=== PATIENT | male | born 1990 | race Asian ===

== ENCOUNTER 2017-10-04 12:46 | Emergency (ER) | payer BC ==
[2017-10-04] MEDS ORDERED: Triple Antibiotic 0.94 gm Pkt TP STA (13:37)
[2017-10-04] MEDS ORDERED: Triple Antibiotic 0.94 gm Pkt TP ONE (13:43)
--- NOTE | 2017-10-04 14:10 | ED Physician Chart ---
ED Chief Complaint/HPI - Patient Information Date Seen:: 10/04/17 Time Seen:: 13:00 Chief Complaint:: Left Wrist Cut History of Present Illness:: onset x one hour [employer] of a left wrist cut accidentally while using a knife while cooking one hour [employer]; pt denies pain, paresthesias, weakness, dizziness, vertigo , visual or gait changes, H/As, LOC, neck pain, C/P, SOB, Abd. Pain, A/N/V/D/C, fever, chills, or urinary s/s; pt's last tetanus shot: < 5 years; UTD; Allergies:: Allergies Allergy/AdvReac Type Severity Reaction Status Date / Time No Known Allergies Allergy Verified 10/04/17 13:07 Vitals:: Vital Signs - 8 hr 10/04/17 10/04/17 13:07 13:51 Temp 97.8 F 97.8 F HR 117 85 RR 16 18 BP 138/79 117/52 O2 Sat % 99 97 Historian:: Patient Review:: Nurse's Note Reviewed ED Review of Systems - Review of Systems General/Constitutional: No fever, No chills, No weight loss, No weakness, No diaphoresis, No edema, No loss of appetite Skin: No skin lesions, No rash, No bruising, Other (Left Wrist Laceration) Head: No headache, No light-headedness Eyes: No loss of vision, No pain, No diplopia ENT: No earache, No nasal drainage, No sore throat, No tinnitus Neck: No neck pain, No swelling, No thyromegaly, No stiffness, No mass noted Cardio Vascular: No chest pain, No palpitations, No PND, No orthopnea, No edema Pulmonary: No SOB, No cough, No sputum, No wheezing GI: No nausea, No vomiting, No diarrhea, No pain, No melena, No hematochezia, No constipation, No hematemesis G/U: No dysuria, No frequency, No hematuria, No nacturia Musculoskeletal: No bone or joint pain, No back pain, No muscle pain Endocrine: No polyuria, No polydipsia Psychiatric: No prior psych history, No depression, No anxiety, No suicidal ideation, No homicidal ideation, No auditory hallucination, No visual hallucination Hematopoietic: No bruising, No lymphadenopathy Allergic/Immuno: No urticaria, No angioedema Neurological: No syncope, No focal symptoms, No weakness, No paresthesia, No headache, No seizure, No dizziness, No confusion, No vertigo ED Past Medical History - Past Medical History Obtainable: Yes Past Medical History: No significant medical hx Family History: None Social History: Non Smoker, No Alcohol, No Drug Use, Single Surgical History: None Psychiatricy History: None Medication: Reviewed Family Medical History - Family Member Mother History Unknown: Yes ED Physical Exam - Physical Examination General/Constitutional: Awake, Well-developed, well-nourished, Alert, No distress, GCS 15, Non-toxic appearing, Ambulatory Head: Atraumatic Eyes: Lids, conjuctiva normal, PERRL, EOMI Skin: Nl inspection, No rash, No skin lesions, No ecchymosis, Well hydrated, No lymphadenopathy Other Skin comments:: 1.5cm Left Wrist Laceration; no FBs; full ROMs of all joints; no ligament instability; good motor, tendon, and sensory functions; good NV functions ENMT: External ears, nose nl, TM canals nl, Nasal exam nl, Lips, teeth, gums nl , Oropharynx nl, Tonsils nl Neck: Nontender, Full ROM w/o pain, No JVD, No nuchal rigidity, No bruit, No mass, No stridor Other Neck comments:: supple; no meningeal signs; no cervical tenderness; no bruits Respiratory: Nl effort/Exclusion, Clear to Auscultation, No Wheeze/Rhonchi/Rales Cardio Vascular: RRR, No murmur, gallop, rubs, NL S1 S2, Carotid/Femoral/Distal pulses equal bilaterally GI: No tenderness/rebounding/guarding, No organomegaly, No hernia, Normal BS's, Nondistended, No mass/bruits, No McBurney tenderness Other GI comments:: no pulsatile masses : No CVA tenderness Extremities: No tenderness or effusion, Full ROM, normal strength in all extremities, No edema, Normal digits & nails Other Extremities comments:: as above Neuro/Psych: Alert/oriented, DTR's symmetric, Normal sensory exam, Normal motor strength, Judgement/insight normal, Mood normal, Normal gait, No focal deficits Misc: Normal back, No paraspinal tenderness ED Assessment - Procedures Informed Consent: Procedure/risk/benefits explained by MD: Yes Location:: Left Wrist Laceration Type:: Simple Wound Length: 1.5 cm Prep/Irrigation:: Thorough Cleansing and Irrigation with betadine and saline Local Anesthetic:: Xylocaine 1.0cc sub-Q Suture Type and #: 5-0 nylon sutures x 3 Comments:: neosporin ointment and dressing applied ED Septic Shock - . Is Septic Shock (SBP<90, OR Lactate>4 mmol\L) present?: No - <6hrs of presentation: Vital Signs: Vital Signs - 8 hr 10/04/17 10/04/17 13:07 13:51 Temp 97.8 F 97.8 F HR 117 85 RR 16 18 BP 138/79 117/52 O2 Sat % 99 97 ED Reassessment (Disposition) - Reassessment Reassessment:: pt is aymptomatic upon discharge Reassessment Condition:: Improved - Diagnosis Diagnosis:: 1.5cm Left Wrist Laceration; Left Wrist Wound - Aftercare/Follow up Instructions Aftercare/Follow-Up Instructions:: Counseled pt regarding lab results/diagnosis & need follow up, Refer to Discharge Instructions, Counseled pt & family regarding lab results/diagnosis & need follow up Medication Prescribed:: Rx: Keflex 500mg po qid x 10 days; Neosporin Ointment bid and dressing x 14 days ; Wound/Laceration Care Instructions; Sutures out in 14 days; keep wound clean and dry - Patient Disposition Discharge/Transfer:: Home Condition at Disposition:: Stable, Improved (RTER prn if existing s/s reoccur and/or get worse and/or any other new s/s occur; ACIs given for all above Dx; Sutures to be removed in 10 days to 14 days; Have wound checked in one day by PMD; Refer to Orthopedist/Vascular Surgeon DK; F/U with PMD in one day or prn ; RTER prn if concerned) ED Discharge Plan - Patient Disposition Admit/Discharge/Transfer: PT DISCHARGED HOME Condition at Disposition: Stable Prescriptions: Cephalexin [Keflex] 500 mg PO QID #40 cap Neomycin Hernandez/Bacitrac Zn/Poly [Neosporin Ointment Packet] 1 each TP BID 14 Days oint.pack Instructions: Sutured Wound Care, Laceration Care, Adult, [id number] Additional Instructions: Follow-up wound check in 2 days, Follow-up with primary MD in 10-14 days for suture removal. Take medications as prescribed by MD. Daily dressing change and apply antibiotic ointment as prescribed by
== END 2017-10-04 14:10 | disposition home or self-care (01) ==
LOC: ER 12:46
DX: S61.512A Laceration without foreign body of left wrist, initial encounter (principal); W26.0XXA Contact with knife, initial encounter; Y93.89 Activity, other specified; Y92.89 Other specified places as the place of occurrence of the external cause; Y99.8 Other external cause status
CPT/HCPCS: 12001; J2001; X7704; Z7502; Z7610